=== PATIENT | male | born 1965 | race Hispanic/Latino ===

== ENCOUNTER 2022-01-12 19:05 | Emergency (ER) | payer OTHER ==
[~2022-01-12] VITALS: Ht 182.9 cm; Wt 129.3 kg
[~2022-01-12 19:05] MED LIST: PHENOBARBITOL
[2022-01-12 19:43] LABS: BASOPHILS % 0.8 % (0.0-1.0); EOSINOPHILS # (AUTO) 0.6 (0.0-0.4); EOSINOPHILS % 15.2 % (0.0-6.0); HEMATOCRIT 25.4 % (38.2-49.6); HEMOGLOBIN 7.8 g/dL (14.0-18.0); LYMPHOCYTES # (AUTO) 0.3 (1.0-3.2); LYMPHOCYTES % 7.9 % (18.0-39.1); MEAN CORPUSCULAR HEMOGLOBIN 28.7 pg (28-32); MEAN CORPUSCULAR HGB CONC 30.7 g/dL (31-35); MEAN CORPUSCULAR VOLUME 93.4 fL (81-99); MONOCYTES # (AUTO) 0.4 (0.2-0.8); MONOCYTES % 9.7 % (4.4-11.3); NEUTROPHILS # (AUTO) 2.5 (2.1-6.9); NEUTROPHILS % 66.1 % (38.7-80.0); PLATELET COUNT 57 x10e3/uL (140-360); RED BLOOD COUNT 2.72 x10e6/uL (4.3-5.7); RED CELL DISTRIBUTION WIDTH 14.2 % (11.7-14.4)
[2022-01-12 19:48] LABS: INR 1.16; PROTHROMBIN TIME 15.8 seconds (11.9-14.5)
[2022-01-12 19:49] LABS: PARTIAL THROMBOPLASTIN TIME 43.4 seconds (23.8-35.5)
[2022-01-12 19:58] LABS: ALBUMIN 2.3 g/dL (3.5-5.0); ALBUMIN/GLOBULIN RATIO 0.6 (0.8-2.0); ANION GAP 9.3 mmol/L (8-16); CALCIUM 7.5 mg/dL (8.4-10.2); CREATININE, SERUM 0.83 mg/dL (0.72-1.25); POTASSIUM 4.3 mmol/L (3.5-5.1)
[2022-01-12 20:22] LABS: CLARITY,URINE SL CLOUDY (CLEAR); COLOR,URINE STRAW (YELLOW); KETONES,URINE NEGATIVE (NEGATIVE); LEUKOCYTE ESTERASE ,URINE SMALL (NEGATIVE); NITRITE,URINE NEGATIVE (NEGATIVE); PROTEIN,URINE DIPSTICK NEGATIVE (NEGATIVE); URINE UROBILINOGEN 0.2 mg/dL (0.2 - 1)
[2022-01-12 20:33] LABS: BACTERIA,URINE MODERATE /HPF; EPITHELIAL CELLS,URINE RARE /LPF; RBC,URINE 0-5 /HPF (0-5)
== END 2022-01-12 20:43 | disposition home or self-care (01) ==
LOC: ER 19:30
DX: R18.8 Other ascites (principal); K74.60 Unspecified cirrhosis of liver; R74.8 Abnormal levels of other serum enzymes
CPT/HCPCS: 36415; 80053; 81001; 83690; 85025; 85610; 85730; 99283

== ENCOUNTER → 2022-02-01 | Day surgery (SDC) | payer OTHER ==
[2022-01-31 12:37] LABS: BASOPHILS % 0.7 % (0.0-1.0); EOSINOPHILS # (AUTO) 0.4 (0.0-0.4); EOSINOPHILS % 8.1 % (0.0-6.0); HEMATOCRIT 28.4 % (38.2-49.6); HEMOGLOBIN 8.7 g/dL (14.0-18.0); LYMPHOCYTES # (AUTO) 0.5 (1.0-3.2); LYMPHOCYTES % 11.2 % (18.0-39.1); MEAN CORPUSCULAR HEMOGLOBIN 28.9 pg (28-32); MEAN CORPUSCULAR HGB CONC 30.6 g/dL (31-35); MEAN CORPUSCULAR VOLUME 94.4 fL (81-99); MONOCYTES # (AUTO) 0.5 (0.2-0.8); MONOCYTES % 10.9 % (4.4-11.3); NEUTROPHILS # (AUTO) 2.9 (2.1-6.9); NEUTROPHILS % 68.4 % (38.7-80.0); PLATELET COUNT 76 x10e3/uL (140-360); RED BLOOD COUNT 3.01 x10e6/uL (4.3-5.7); RED CELL DISTRIBUTION WIDTH 14.1 % (11.7-14.4)
[2022-01-31 12:54] LABS: INR 1.2; PROTHROMBIN TIME 16.3 seconds (11.9-14.5)
[2022-01-31 12:55] LABS: PARTIAL THROMBOPLASTIN TIME 41.7 seconds (23.8-35.5)
[2022-01-31 13:03] LABS: ALBUMIN 2.3 g/dL (3.5-5.0); ALBUMIN/GLOBULIN RATIO 0.6 (0.8-2.0); CALCIUM 7.6 mg/dL (8.4-10.2); CREATININE, SERUM 0.89 mg/dL (0.72-1.25)
[~2022-02-01] MED LIST changes: +CEFTRIAXONE 1 GM VIAL ONE; +FENTANYL CITRATE/PF 100MCG/2 ML INJ ONE; +KETAMINE HCL INJ 50 MG/ML 10 ML VIAL ONE; +LASIX40 MG PO; +PROPOFOL IV EMULSION 50 ML IV ONE
[2022-02-01 14:10] VITALS: BP 130/80
== END | disposition home or self-care (01) ==
LOC: OR 09:51
PROVIDERS: ATTEND Internal Medicine Gastroenterology
DX: K74.60 Unspecified cirrhosis of liver (principal); I85.10 Secondary esophageal varices without bleeding; K62.1 Rectal polyp; K64.8 Other hemorrhoids; K59.00 Constipation, unspecified; K29.50 Unspecified chronic gastritis without bleeding; K25.9 Gastric ulcer, unspecified as acute or chronic, without hemorrhage or perforation; K76.6 Portal hypertension; K31.89 Other diseases of stomach and duodenum; Z71.3 Dietary counseling and surveillance; D64.89 Other specified anemias; I10 Essential (primary) hypertension; Z01.810 Encounter for preprocedural cardiovascular examination; Z01.812 Encounter for preprocedural laboratory examination; Z79.899 Other long term (current) drug therapy; Z68.31 Body mass index [BMI] 31.0-31.9, adult
CPT/HCPCS: 36415; 43239; 43244; 45384; 80053; 85025; 85610; 85730; 93005; C9113; J0696; J2704; J3010; 43270; 45378; 45385

== ENCOUNTER 2022-02-03 11:37 | Emergency (ER) | payer OTHER ==
[~2022-02-03] VITALS: Ht 182.9 cm; Wt 129.3 kg
[~2022-02-03 11:37] MED LIST changes: -CEFTRIAXONE 1 GM VIAL ONE; -FENTANYL CITRATE/PF 100MCG/2 ML INJ ONE; -KETAMINE HCL INJ 50 MG/ML 10 ML VIAL ONE; -PROPOFOL IV EMULSION 50 ML IV ONE
[2022-02-03 12:37] LABS: BASOPHILS % 0.6 % (0.0-1.0); EOSINOPHILS # (AUTO) 0.2 (0.0-0.4); EOSINOPHILS % 4.2 % (0.0-6.0); LYMPHOCYTES # (AUTO) 0.4 (1.0-3.2); LYMPHOCYTES % 8.2 % (18.0-39.1); MEAN CORPUSCULAR HEMOGLOBIN 28.7 pg (28-32); MEAN CORPUSCULAR HGB CONC 31.8 g/dL (31-35); MEAN CORPUSCULAR VOLUME 90.3 fL (81-99); MONOCYTES # (AUTO) 0.5 (0.2-0.8); MONOCYTES % 11.3 % (4.4-11.3); NEUTROPHILS # (AUTO) 3.6 (2.1-6.9); NEUTROPHILS % 75.3 % (38.7-80.0); PLATELET COUNT 56 x10e3/uL (140-360); RED BLOOD COUNT 2.89 x10e6/uL (4.3-5.7); RED CELL DISTRIBUTION WIDTH 14.4 % (11.7-14.4)
[2022-02-03 12:39] LABS: HEMATOCRIT 26.2 % (38.2-49.6); HEMOGLOBIN 8.4 g/dL (14.0-18.0)
[2022-02-03 12:50] LABS: INR 1.14; PROTHROMBIN TIME 15.6 seconds (11.9-14.5)
[2022-02-03 12:51] LABS: PARTIAL THROMBOPLASTIN TIME 46.2 seconds (23.8-35.5)
[2022-02-03 12:58] LABS: ALBUMIN 2.4 g/dL (3.5-5.0); ALBUMIN/GLOBULIN RATIO 0.6 (0.8-2.0); ANION GAP 12.2 mmol/L (8-16); CALCIUM 7.6 mg/dL (8.4-10.2); CREATININE, SERUM 0.95 mg/dL (0.72-1.25); POTASSIUM 4.2 mmol/L (3.5-5.1)
[2022-02-03] MEDS ORDERED: ALBUMIN 25% 12.5GM 50ML 300 ML IV ONE (13:41)
[2022-02-03 17:13] VITALS: BP 142/85
== END 2022-02-03 15:57 | disposition home or self-care (01) ==
LOC: ER 11:47
DX: R18.8 Other ascites (principal); K74.60 Unspecified cirrhosis of liver; G40.909 Epilepsy, unspecified, not intractable, without status epilepticus
CPT/HCPCS: 36415; 49083; 74470; 80053; 85025; 85610; 85730; 99284; C1729

== ENCOUNTER → 2022-02-14 | Outpatient (CLI) | payer OTHER ==
[~2022-02-14] MED LIST changes: +ALBUMIN 25% 12.5GM 50ML 300 ML IV ONE
== END ==
LOC: US 12:44
PROVIDERS: ATTEND Internal Medicine Gastroenterology
DX: R18.8 Other ascites (principal); K74.69 Other cirrhosis of liver
CPT/HCPCS: 49083; C1729

== ENCOUNTER → 2022-02-24 | Outpatient (CLI) | payer OTHER | LOC: US 10:43 | PROVIDERS: ATTEND Internal Medicine Gastroenterology | DX: K74.69 Other cirrhosis of liver (principal) | CPT/HCPCS: 49083; C1729 ==

== ENCOUNTER → 2022-03-07 | Outpatient (CLI) | payer OTHER ==
[2022-03-07 11:52] LABS: HEMOGLOBIN 8.3 g/dL (14.0-18.0)
[2022-03-07 12:03] LABS: INR 1.19; PROTHROMBIN TIME 16.2 seconds (11.9-14.5)
[2022-03-07 12:04] LABS: PARTIAL THROMBOPLASTIN TIME 45.3 seconds (23.8-35.5)
== END ==
LOC: US 11:21
PROVIDERS: ATTEND Internal Medicine Gastroenterology
DX: K74.69 Other cirrhosis of liver (principal)
CPT/HCPCS: 36415; 49083; 85014; 85049; 85610; 85730

== ENCOUNTER → 2022-03-15 | Outpatient (CLI) | payer OTHER | LOC: US 11:33 | PROVIDERS: ATTEND Internal Medicine Gastroenterology | DX: K74.69 Other cirrhosis of liver (principal) | CPT/HCPCS: 49083 ==

== ENCOUNTER → 2022-05-01 | Outpatient (CLI) | payer OTHER | LOC: US 09:32 | PROVIDERS: ATTEND Internal Medicine Gastroenterology | DX: K74.69 Other cirrhosis of liver (principal) | CPT/HCPCS: 49083; C1729 ==

== ENCOUNTER → 2022-05-08 | Outpatient (CLI) | payer OTHER | LOC: US 09:02 | PROVIDERS: ATTEND Internal Medicine Gastroenterology | DX: K74.69 Other cirrhosis of liver (principal) | CPT/HCPCS: 49083 ==

== ENCOUNTER → 2022-05-15 | Outpatient (CLI) | payer OTHER ==
[~2022-05-15] MED LIST changes: +CEPHALEXIN500 MG PO
[2022-05-15 12:13] LABS: BASOPHILS % 0.7 % (0.0-1.0); EOSINOPHILS # (AUTO) 0.3 (0.0-0.4); EOSINOPHILS % 6.3 % (0.0-6.0); HEMATOCRIT 27.1 % (38.2-49.6); HEMOGLOBIN 8.3 g/dL (14.0-18.0); LYMPHOCYTES # (AUTO) 0.4 (1.0-3.2); LYMPHOCYTES % 8.9 % (18.0-39.1); MEAN CORPUSCULAR HEMOGLOBIN 28.7 pg (28-32); MEAN CORPUSCULAR HGB CONC 30.6 g/dL (31-35); MEAN CORPUSCULAR VOLUME 93.8 fL (81-99); MONOCYTES # (AUTO) 0.6 (0.2-0.8); MONOCYTES % 12.1 % (4.4-11.3); NEUTROPHILS # (AUTO) 3.3 (2.1-6.9); NEUTROPHILS % 71.6 % (38.7-80.0); PLATELET COUNT 63 x10e3/uL (140-360); RED BLOOD COUNT 2.89 x10e6/uL (4.3-5.7); RED CELL DISTRIBUTION WIDTH 14.1 % (11.7-14.4)
[2022-05-15 12:41] LABS: INR 1.28; PROTHROMBIN TIME 16.2 seconds (11.9-14.5)
[2022-05-15 12:42] LABS: PARTIAL THROMBOPLASTIN TIME 46.3 seconds (23.8-35.5)
[2022-05-15 12:49] LABS: ALBUMIN 2.7 g/dL (3.5-5.0); ALBUMIN/GLOBULIN RATIO 0.8 (0.8-2.0); CALCIUM 8.1 mg/dL (8.4-10.2); CREATININE, SERUM 1.06 mg/dL (0.72-1.25)
== END ==
LOC: US 11:16
PROVIDERS: ATTEND Internal Medicine Gastroenterology
DX: K74.69 Other cirrhosis of liver (principal)
CPT/HCPCS: 36415; 49083; 80053; 85025; 85610; 85730

== ENCOUNTER 2022-05-18 03:55 | Emergency (ER) | payer OTHER ==
[~2022-05-18] VITALS: Ht 182.9 cm; Wt 129.3 kg
[~2022-05-18 03:55] MED LIST changes: -ALBUMIN 25% 12.5GM 50ML 300 ML IV ONE; -CEPHALEXIN500 MG PO
[2022-05-18] MEDS ORDERED: CEPHALEXIN500 MG PO (04:29)
== END 2022-05-18 04:55 | disposition home or self-care (01) ==
LOC: ER 03:58
DX: S01.111A Laceration without foreign body of right eyelid and periocular area, initial encounter (principal); S91.204A Unspecified open wound of right lesser toe(s) with damage to nail, initial encounter; W01.198A Fall on same level from slipping, tripping and stumbling with subsequent striking against other object, initial encounter; Y93.01 Activity, walking, marching and hiking; Y92.89 Other specified places as the place of occurrence of the external cause; K76.9 Liver disease, unspecified
CPT/HCPCS: 99283

== ENCOUNTER → 2022-05-22 | Outpatient (CLI) | payer OTHER ==
[~2022-05-22] MED LIST changes: +ALBUMIN 25% 12.5GM 50ML 300 ML IV ONE; +CEPHALEXIN500 MG PO
== END ==
LOC: US 11:14
PROVIDERS: ATTEND Internal Medicine Gastroenterology
DX: K74.69 Other cirrhosis of liver (principal)
CPT/HCPCS: 49083; C1729

== ENCOUNTER 2022-05-29 12:18 | Emergency (ER) | payer OTHER ==
[~2022-05-29] VITALS: Ht 182.9 cm; Wt 129.3 kg
[~2022-05-29 12:18] MED LIST changes: -ALBUMIN 25% 12.5GM 50ML 300 ML IV ONE
== END 2022-05-29 13:54 | disposition home or self-care (01) ==
LOC: ER 12:25
DX: Z48.02 Encounter for removal of sutures (principal)
CPT/HCPCS: 99282

== ENCOUNTER → 2022-05-30 | Outpatient (CLI) | payer OTHER ==
[~2022-05-30] MED LIST changes: +ALBUMIN 25% 12.5GM 50ML 300 ML IV ONE
== END ==
LOC: US 12:21
PROVIDERS: ATTEND Nurse Practitioner
DX: K74.69 Other cirrhosis of liver (principal)
CPT/HCPCS: 49083; C1729

== ENCOUNTER → 2022-06-14 | Outpatient (CLI) | payer OTHER ==
[2022-06-14 10:35] LABS: HEMOGLOBIN 7.5 g/dL (14.0-18.0)
[2022-06-14 10:41] LABS: INR 1.36; PROTHROMBIN TIME 16.9 seconds (11.9-14.5)
[2022-06-14 10:42] LABS: PARTIAL THROMBOPLASTIN TIME 48.3 seconds (23.8-35.5)
[2022-06-14 10:46] LABS: ANION GAP 11.4 mmol/L (8-16); CALCIUM 7.6 mg/dL (8.4-10.2); CREATININE, SERUM 1.18 mg/dL (0.72-1.25); POTASSIUM 4.4 mmol/L (3.5-5.1)
== END ==
LOC: US 09:57
PROVIDERS: ATTEND Nurse Practitioner
DX: K74.69 Other cirrhosis of liver (principal)
CPT/HCPCS: 36415; 49083; 80048; 85014; 85049; 85610; 85730

== ENCOUNTER → 2022-06-21 | Outpatient (CLI) | payer OTHER ==
[2022-06-21 09:34] LABS: HEMOGLOBIN 7.4 g/dL (14.0-18.0)
[2022-06-21 09:53] LABS: INR 1.27; PROTHROMBIN TIME 16.1 seconds (11.9-14.5)
[2022-06-21 09:54] LABS: PARTIAL THROMBOPLASTIN TIME 50.6 seconds (23.8-35.5)
[2022-06-21 09:58] LABS: CREATININE, SERUM 1.51 mg/dL (0.72-1.25)
== END ==
LOC: US 09:08
PROVIDERS: ATTEND Nurse Practitioner
DX: K74.69 Other cirrhosis of liver (principal)
CPT/HCPCS: 36415; 49083; 82565; 84520; 85014; 85049; 85610; 85730; C1729

== ENCOUNTER → 2022-06-28 | Outpatient (CLI) | payer OTHER | LOC: RAD 09:43 | PROVIDERS: ATTEND Nurse Practitioner | DX: K74.69 Other cirrhosis of liver (principal) | CPT/HCPCS: 49083 ==

== ENCOUNTER → 2022-07-05 | Outpatient (CLI) | payer OTHER | LOC: US 10:51 | PROVIDERS: ATTEND Internal Medicine Gastroenterology | DX: K74.69 Other cirrhosis of liver (principal) | CPT/HCPCS: 49083; C1729 ==

== ENCOUNTER → 2022-07-11 | Outpatient (CLI) | payer OTHER ==
[~2022-07-11] MED LIST changes: +ALBUMIN 25% 12.5GM 50ML 200 ML IV ONE; -ALBUMIN 25% 12.5GM 50ML 300 ML IV ONE
== END ==
LOC: US 10:02
PROVIDERS: ATTEND Nurse Practitioner
DX: K74.69 Other cirrhosis of liver (principal)
CPT/HCPCS: 49083; C1729

== ENCOUNTER → 2022-07-19 | Outpatient (CLI) | payer OTHER ==
[~2022-07-19] MED LIST changes: -ALBUMIN 25% 12.5GM 50ML 200 ML IV ONE; +ALBUMIN 25% 12.5GM 50ML 300 ML IV ONE
== END ==
LOC: US 10:32
PROVIDERS: ATTEND Nurse Practitioner
DX: K74.69 Other cirrhosis of liver (principal)
CPT/HCPCS: 49083; C1729

== ENCOUNTER → 2022-07-25 | Outpatient (CLI) | payer OTHER ==
[2022-07-25 08:28] LABS: HEMOGLOBIN 8.4 g/dL (14.0-18.0)
[2022-07-25 08:44] LABS: INR 1.28; PROTHROMBIN TIME 16.5 seconds (11.9-14.5)
[2022-07-25 08:45] LABS: PARTIAL THROMBOPLASTIN TIME 50.4 seconds (23.8-35.5)
== END ==
LOC: US 07:38
PROVIDERS: ATTEND Internal Medicine Gastroenterology
DX: K74.69 Other cirrhosis of liver (principal)
CPT/HCPCS: 36415; 49083; 85014; 85049; 85610; 85730; C1729

== ENCOUNTER → 2022-08-01 | Outpatient (CLI) | payer OTHER | LOC: US 08:03 | PROVIDERS: ATTEND Internal Medicine Gastroenterology | DX: K74.69 Other cirrhosis of liver (principal) | CPT/HCPCS: 49083 ==

== ENCOUNTER → 2022-08-08 | Outpatient (CLI) | payer OTHER | LOC: US 10:32 | PROVIDERS: ATTEND Internal Medicine Gastroenterology | DX: K74.69 Other cirrhosis of liver (principal) | CPT/HCPCS: 49083 ==

== ENCOUNTER → 2022-08-16 | Outpatient (CLI) | payer OTHER | LOC: US 09:20 | PROVIDERS: ATTEND Internal Medicine Gastroenterology | DX: K74.69 Other cirrhosis of liver (principal) | CPT/HCPCS: 49083; C1729 ==

== ENCOUNTER → 2022-08-23 | Outpatient (CLI) | payer OTHER | LOC: US 10:18 | PROVIDERS: ATTEND Nurse Practitioner | DX: K74.69 Other cirrhosis of liver (principal) | CPT/HCPCS: 49083; C1729 ==

== ENCOUNTER → 2022-08-30 | Outpatient (CLI) | payer OTHER ==
[2022-08-30 11:24] LABS: INR 1.26; PROTHROMBIN TIME 16.3 seconds (11.9-14.5)
[2022-08-30 11:25] LABS: PARTIAL THROMBOPLASTIN TIME 54.5 seconds (23.8-35.5)
== END ==
LOC: US 10:46
PROVIDERS: ATTEND Internal Medicine Gastroenterology
DX: K74.69 Other cirrhosis of liver (principal)
CPT/HCPCS: 36415; 49083; 85014; 85049; 85610; 85730

== ENCOUNTER → 2022-09-06 | Outpatient (CLI) | payer OTHER | LOC: US 10:26 | PROVIDERS: ATTEND Nurse Practitioner | DX: K74.69 Other cirrhosis of liver (principal) | CPT/HCPCS: 49083 ==

== ENCOUNTER → 2022-09-13 | Outpatient (CLI) | payer OTHER ==
[2022-09-13 10:09] LABS: INR 1.31; PROTHROMBIN TIME 16.8 seconds (11.9-14.5)
[2022-09-13 10:10] LABS: BASOPHILS # (AUTO) 0.1 (0.0-0.1); BASOPHILS % 0.9 % (0.0-1.0); EOSINOPHILS # (AUTO) 1.5 (0.0-0.4); EOSINOPHILS % 27.3 % (0.0-6.0); HEMATOCRIT 25.4 % (38.2-49.6); HEMOGLOBIN 8.1 g/dL (14.0-18.0); LYMPHOCYTES # (AUTO) 0.4 (1.0-3.2); LYMPHOCYTES % 6.3 % (18.0-39.1); MEAN CORPUSCULAR HEMOGLOBIN 28.6 pg (28-32); MEAN CORPUSCULAR HGB CONC 31.9 g/dL (31-35); MEAN CORPUSCULAR VOLUME 89.8 fL (81-99); MONOCYTES # (AUTO) 0.6 (0.2-0.8); MONOCYTES % 10.5 % (4.4-11.3); NEUTROPHILS % 54.6 % (38.7-80.0); PLATELET COUNT 88 x10e3/uL (140-360); RED BLOOD COUNT 2.83 x10e6/uL (4.3-5.7); RED CELL DISTRIBUTION WIDTH 14.3 % (11.7-14.4)
[2022-09-13 12:30] LABS: EOSINOPHILS % (MANUAL) 13 % (0-7); LYMPHOCYTES % (MANUAL) 8 % (19-48); MONOCYTES % (MANUAL) 4 % (3.4-9.0); MYELOCYTES % (MANUAL) 1 % (0-0); NEUTROPHILS % (MANUAL) 74 % (40-74); PLATELET ESTIMATE SLIGHTLY DECREASED
[2022-09-13 12:31] LABS: PLATELET MORPHOLOGY COMMENT NORMAL; RBC MORPHOLOGY COMMENT NORMAL
== END ==
LOC: US 09:08
PROVIDERS: ATTEND Nurse Practitioner
DX: K74.69 Other cirrhosis of liver (principal)
CPT/HCPCS: 36415; 49083; 85025; 85610; 85730

== ENCOUNTER → 2022-09-22 | Outpatient (CLI) | payer OTHER | LOC: US 11:56 | PROVIDERS: ATTEND Internal Medicine Gastroenterology | DX: K74.69 Other cirrhosis of liver (principal) | CPT/HCPCS: 49083; C1729 ==

== ENCOUNTER → 2022-09-28 | Outpatient (CLI) | payer OTHER ==
[~2022-09-28] MED LIST changes: +ALBUMIN 25% 12.5GM 50ML 200 ML IV ONE; -ALBUMIN 25% 12.5GM 50ML 300 ML IV ONE; +LIDOCAINE HCL 1% LOCAL INJ 20 ML VIAL ONE
== END ==
LOC: US 11:05
PROVIDERS: ATTEND Internal Medicine Gastroenterology
DX: K74.69 Other cirrhosis of liver (principal)
CPT/HCPCS: 49083; J2001

== ENCOUNTER → 2022-10-20 | Outpatient (CLI) | payer OTHER ==
[~2022-10-20] MED LIST changes: +ALBUMIN 25% 12.5GM 50ML 150 ML IV ONE; -ALBUMIN 25% 12.5GM 50ML 200 ML IV ONE; -LIDOCAINE HCL 1% LOCAL INJ 20 ML VIAL ONE
[2022-10-20 11:08] LABS: HEMOGLOBIN 7.9 g/dL (14.0-18.0)
[2022-10-20 11:23] LABS: INR 1.33; PROTHROMBIN TIME 17.3 seconds (11.9-14.5)
[2022-10-20 11:24] LABS: PARTIAL THROMBOPLASTIN TIME 46.4 seconds (23.8-35.5)
== END ==
LOC: US 10:46
PROVIDERS: ATTEND Nurse Practitioner
DX: K74.69 Other cirrhosis of liver (principal)
CPT/HCPCS: 36415; 49083; 85014; 85049; 85610; 85730

== ENCOUNTER → 2022-11-03 | Outpatient (CLI) | payer OTHER ==
[~2022-11-03] MED LIST changes: -ALBUMIN 25% 12.5GM 50ML 150 ML IV ONE; +ALBUMIN 25% 12.5GM 50ML 300 ML IV ONE
== END ==
LOC: US 10:59
PROVIDERS: ATTEND Nurse Practitioner
DX: K74.69 Other cirrhosis of liver (principal)
CPT/HCPCS: 49083; C1729

== ENCOUNTER → 2023-02-06 | Outpatient (REF) | payer OTHER ==
[~2023-02-06] MED LIST changes: +PANTOPRAZOLE SO40 MG PO; +PROPRANOLOL HCL10 MG PO; +SPIRONOLACTONE25 MG PO
== END ==
LOC: US 11:02
PROVIDERS: ATTEND Internal Medicine Gastroenterology
DX: R18.8 Other ascites (principal); K74.69 Other cirrhosis of liver
CPT/HCPCS: 49083

== ENCOUNTER → 2023-02-13 | Outpatient (REF) | payer OTHER ==
[2023-02-13 14:04] LABS: INR 1.37; PROTHROMBIN TIME 17.2 seconds (11.9-14.5)
[2023-02-13 14:05] LABS: PARTIAL THROMBOPLASTIN TIME 55.1 seconds (23.8-35.5)
[2023-02-13 14:08] LABS: BASOPHILS # (AUTO) 0.1 (0.0-0.1); BASOPHILS % 1.1 % (0.0-1.0); EOSINOPHILS # (AUTO) 0.5 (0.0-0.4); HEMATOCRIT 22.7 % (38.2-49.6); HEMOGLOBIN 7.2 g/dL (14.0-18.0); LYMPHOCYTES # (AUTO) 0.4 (1.0-3.2); LYMPHOCYTES % 9.4 % (18.0-39.1); MEAN CORPUSCULAR HEMOGLOBIN 28.8 pg (28-32); MEAN CORPUSCULAR HGB CONC 31.7 g/dL (31-35); MEAN CORPUSCULAR VOLUME 90.8 fL (81-99); MONOCYTES # (AUTO) 0.7 (0.2-0.8); MONOCYTES % 14.5 % (4.4-11.3); NEUTROPHILS # (AUTO) 2.9 (2.1-6.9); NEUTROPHILS % 64.3 % (38.7-80.0); PLATELET COUNT 88 x10e3/uL (140-360); RED CELL DISTRIBUTION WIDTH 14.7 % (11.7-14.4); WHITE BLOOD COUNT 4.48 x10e3/uL (4.8-10.8)
== END ==
LOC: US 12:27
PROVIDERS: ATTEND Internal Medicine Gastroenterology
DX: K74.69 Other cirrhosis of liver (principal)
CPT/HCPCS: 36415; 49083; 85025; 85610; 85730

== ENCOUNTER → 2023-02-20 | Outpatient (REF) | payer OTHER ==
[~2023-02-20] MED LIST changes: +ALBUMIN 25% 12.5GM 50ML 100 ML IV ONE; -ALBUMIN 25% 12.5GM 50ML 300 ML IV ONE
== END ==
LOC: US 10:00
PROVIDERS: ATTEND Internal Medicine Gastroenterology
DX: R18.8 Other ascites (principal); K74.69 Other cirrhosis of liver
CPT/HCPCS: 49083

== ENCOUNTER → 2023-03-14 | Outpatient (REF) | payer OTHER ==
[~2023-03-14] MED LIST changes: -ALBUMIN 25% 12.5GM 50ML 100 ML IV ONE; +ALBUMIN 25% 12.5GM 50ML 300 ML IV ONE
== END ==
LOC: US 10:13
PROVIDERS: ATTEND Internal Medicine Gastroenterology
DX: R18.8 Other ascites (principal); K74.69 Other cirrhosis of liver
CPT/HCPCS: 49083

== ENCOUNTER → 2023-03-28 | Outpatient (REF) | payer OTHER ==
[~2023-03-28] MED LIST changes: -ALBUMIN 25% 12.5GM 50ML 300 ML IV ONE
[2023-03-28 09:26] LABS: BASOPHILS % 0.3 % (0.0-1.0); EOSINOPHILS # (AUTO) 0.2 (0.0-0.4); EOSINOPHILS % 2.3 % (0.0-6.0); LYMPHOCYTES # (AUTO) 0.4 (1.0-3.2); LYMPHOCYTES % 4.1 % (18.0-39.1); MEAN CORPUSCULAR HEMOGLOBIN 28.1 pg (28-32); MEAN CORPUSCULAR HGB CONC 30.8 g/dL (31-35); MEAN CORPUSCULAR VOLUME 91.5 fL (81-99); MONOCYTES # (AUTO) 0.6 (0.2-0.8); MONOCYTES % 5.9 % (4.4-11.3); NEUTROPHILS # (AUTO) 8.5 (2.1-6.9); NEUTROPHILS % 85.5 % (38.7-80.0); PLATELET COUNT 61 x10e3/uL (140-360); RED BLOOD COUNT 1.99 x10e6/uL (4.3-5.7); RED CELL DISTRIBUTION WIDTH 17.6 % (11.7-14.4); WHITE BLOOD COUNT 9.96 x10e3/uL (4.8-10.8)
[2023-03-28 09:37] LABS: HEMATOCRIT 18.2 % (38.2-49.6); HEMOGLOBIN 5.6 g/dL (14.0-18.0)
[2023-03-28 09:47] LABS: INR 1.51; PROTHROMBIN TIME 18.5 seconds (11.9-14.5)
[2023-03-28 09:48] LABS: PARTIAL THROMBOPLASTIN TIME 51.8 seconds (23.8-35.5)
[2023-03-28 09:53] LABS: ALBUMIN 1.8 g/dL (3.5-5.0); ALBUMIN/GLOBULIN RATIO 0.4 (0.8-2.0); ANION GAP 10.7 mmol/L (8-16); CALCIUM 7.5 mg/dL (8.4-10.2); CREATININE, SERUM 1.32 mg/dL (0.72-1.25); POTASSIUM 3.7 mmol/L (3.5-5.1); TOTAL PROTEIN 6.2 g/dL (6.5-8.1)
== END ==
LOC: US 08:56
PROVIDERS: ATTEND Internal Medicine Gastroenterology
DX: K74.69 Other cirrhosis of liver (principal)
CPT/HCPCS: 36415; 80053; 82140; 85025; 85610; 85730

== ENCOUNTER 2023-04-06 14:11 | Inpatient (IN) | payer OTHER ==
[~2023-04-06] VITALS: Ht 182.9 cm; Wt 129.3 kg
[2023-04-06 14:58] LABS: BASOPHILS % 0.4 % (0.0-1.0); EOSINOPHILS # (AUTO) 0.2 (0.0-0.4); LYMPHOCYTES # (AUTO) 0.3 (1.0-3.2); LYMPHOCYTES % 4.4 % (18.0-39.1); MEAN CORPUSCULAR HGB CONC 29.9 g/dL (31-35); MEAN CORPUSCULAR VOLUME 96.7 fL (81-99); MONOCYTES # (AUTO) 0.7 (0.2-0.8); NEUTROPHILS # (AUTO) 6.3 (2.1-6.9); NEUTROPHILS % 83.7 % (38.7-80.0); RED BLOOD COUNT 1.83 x10e6/uL (4.3-5.7); WHITE BLOOD COUNT 7.57 x10e3/uL (4.8-10.8)
[2023-04-06 14:59] LABS: HEMATOCRIT 17.7 % (38.2-49.6); HEMOGLOBIN 5.3 g/dL (14.0-18.0); PLATELET COUNT 99 x10e3/uL (140-360)
[2023-04-06 15:14] LABS: ALBUMIN 1.6 g/dL (3.5-5.0); ALBUMIN/GLOBULIN RATIO 0.3 (0.8-2.0); ANION GAP 10.4 mmol/L (8-16); BILIRUBIN,TOTAL 1.9 mg/dL (0.2-1.2); CREATININE, SERUM 1.06 mg/dL (0.72-1.25); TOTAL PROTEIN 6.2 g/dL (6.5-8.1)
[2023-04-06 15:15] LABS: POTASSIUM 3.4 mmol/L (3.5-5.1)
[2023-04-06] MEDS ORDERED: SODIUM CHLORIDE 0.9% 250ML 250 ML IV ONE (15:15)
[2023-04-06] MEDS ORDERED: SODIUM CHLORIDE FLUSH 10 ML SYR INJ PRN (18:15)
[2023-04-06] MEDS ORDERED: ONDANSETRON HCL INJ 2MG/ML 2ML 2 MG/ML VIAL IV PRN (18:15)
[2023-04-06] MEDS ORDERED: DOCUSATE SODIUM 100 MG CAP PO PRN (19:30)
[2023-04-06] MEDS ORDERED: MELATONIN 3 MG TAB PO PRN (19:30)
[2023-04-06] MEDS ORDERED: SIMETHICONE 80 MG CHEW PO PRN (19:30)
[2023-04-06] MEDS ORDERED: METOPROLOL TARTRATE INJ 1 MG/ML VIAL IV PRN (19:30)
[2023-04-06 20:35] VITALS: BP 140/60; PULSE 83; RESP 19; TEMP 98.3; O2SAT 100
[2023-04-06 20:47] LABS: FERRITIN 340.01 ng/mL (21.81-274.66)
[2023-04-06] MEDS: FUROSEMIDE INJ 10 MG/ML 4 ML VIAL IV SCH (21:00)
[2023-04-06 23:00] VITALS: BP 140/60; PULSE 83; RESP 19; TEMP 98.3; O2SAT 100
[2023-04-07] VITALS (10 sets, daily range): BP systolic 115–130; BP diastolic 57–60; PULSE 57–86; RESP 16–20; TEMP 98.4–99; O2SAT 95–100
[2023-04-07 00:12] LABS: INR 1.63; PROTHROMBIN TIME 19.7 seconds (11.9-14.5)
[2023-04-07] MEDS ORDERED: PHYTONADIONE 10 MG/ML AMP IV ONE (01:00)
[2023-04-07] MEDS ORDERED: SODIUM CHLORIDE 0.9% 250ML 250 ML ONE ×2 (01:16→07:41)
[2023-04-07] MEDS ORDERED: SODIUM CHLORIDE 0.9% 500ML 500 ML ONE (01:17)
[2023-04-07] MEDS ORDERED: FUROSEMIDE INJ 10 MG/ML 4 ML VIAL IV STA (01:27)
[2023-04-07] MEDS: SODIUM BICARBONATE 650 MG TAB PO SCH ×4 (01:36→21:06)
[2023-04-07 05:38] LABS: BASOPHILS % 0.3 % (0.0-1.0); EOSINOPHILS # (AUTO) 0.2 (0.0-0.4); EOSINOPHILS % 3.7 % (0.0-6.0); LYMPHOCYTES # (AUTO) 0.3 (1.0-3.2); LYMPHOCYTES % 4.5 % (18.0-39.1); MEAN CORPUSCULAR HEMOGLOBIN 29.7 pg (28-32); MEAN CORPUSCULAR HGB CONC 31.2 g/dL (31-35); MEAN CORPUSCULAR VOLUME 95.1 fL (81-99); MONOCYTES # (AUTO) 0.5 (0.2-0.8); MONOCYTES % 7.8 % (4.4-11.3); NEUTROPHILS # (AUTO) 5.3 (2.1-6.9); NEUTROPHILS % 83.2 % (38.7-80.0); PLATELET COUNT 81 x10e3/uL (140-360); RED BLOOD COUNT 1.82 x10e6/uL (4.3-5.7); RED CELL DISTRIBUTION WIDTH 16.6 % (11.7-14.4); WHITE BLOOD COUNT 6.41 x10e3/uL (4.8-10.8)
[2023-04-07 06:04] LABS: ALBUMIN 1.4 g/dL (3.5-5.0); ALBUMIN/GLOBULIN RATIO 0.3 (0.8-2.0); ANION GAP 9.4 mmol/L (8-16); BILIRUBIN,TOTAL 2.1 mg/dL (0.2-1.2); CREATININE, SERUM 0.95 mg/dL (0.72-1.25); TOTAL PROTEIN 5.9 g/dL (6.5-8.1)
[2023-04-07 06:07] LABS: POTASSIUM 3.4 mmol/L (3.5-5.1)
[2023-04-07 06:09] LABS: CALCIUM 6.7 mg/dL (8.4-10.2)
[2023-04-07 06:21] LABS: HEMOGLOBIN 5.4 g/dL (14.0-18.0)
[2023-04-07 06:22] LABS: HEMATOCRIT 17.3 % (38.2-49.6)
[2023-04-07] MEDS: FUROSEMIDE INJ 10 MG/ML 4 ML VIAL IV SCH ×2 (08:48→21:07)
[2023-04-07] MEDS: PROPRANOLOL HCL 10 MG TAB PO SCH ×2 (08:49→17:23)
[2023-04-07] MEDS: SPIRONOLACTONE 25 MG TAB PO SCH (08:49)
[2023-04-07] MEDS ORDERED: PANTOPRAZOLE SOD 40 MG TABEC PO SCH (09:00)
[2023-04-07] MEDS ORDERED: SPIRONOLACTONE 25 MG TAB PO SCH (09:00)
[2023-04-07] MEDS: IRON SUCROSE 100 MG in SODIUM CHLORIDE 0.9% 100 ML IV SCH (10:39)
[2023-04-07] MEDS ORDERED: CALCIUM GLUC 1 G/50 ML NACL 50 ML IV ONE (11:45)
[2023-04-07 12:31] LABS: HEMOGLOBIN 6.3 g/dL (14.0-18.0)
[2023-04-07 12:32] LABS: HEMATOCRIT 20.3 % (38.2-49.6)
[2023-04-08] VITALS (9 sets, daily range): BP systolic 108–125; BP diastolic 54–65; PULSE 60–78; RESP 16–20; TEMP 97.8–98.5; O2SAT 96–100
[2023-04-08] MEDS ORDERED: FUROSEMIDE INJ 10 MG/ML 4 ML VIAL IV STA (00:44)
[2023-04-08] MEDS: FUROSEMIDE INJ 10 MG/ML 4 ML VIAL IV SCH ×3 (04:35→21:15)
[2023-04-08] MEDS: SODIUM BICARBONATE 650 MG TAB PO SCH ×3 (04:35→21:15)
[2023-04-08 05:13] LABS: HEMOGLOBIN 6.3 g/dL (14.0-18.0)
[2023-04-08 05:19] LABS: HEMATOCRIT 20.5 % (38.2-49.6)
[2023-04-08 05:30] LABS: INR 1.68; PROTHROMBIN TIME 20.2 seconds (11.9-14.5)
[2023-04-08 05:38] LABS: ANION GAP 10.3 mmol/L (8-16); CREATININE, SERUM 0.99 mg/dL (0.72-1.25)
[2023-04-08 05:40] LABS: POTASSIUM 3.3 mmol/L (3.5-5.1)
[2023-04-08 05:41] LABS: CALCIUM 6.6 mg/dL (8.4-10.2)
[2023-04-08] MEDS: SPIRONOLACTONE 25 MG TAB PO SCH (08:40)
[2023-04-08] MEDS: IRON SUCROSE 100 MG in SODIUM CHLORIDE 0.9% 100 ML IV SCH (08:40)
[2023-04-08] MEDS: PROPRANOLOL HCL 10 MG TAB PO SCH ×2 (08:40→16:03)
[2023-04-08] MEDS ORDERED: SODIUM CHLORIDE 0.9% 250ML 250 ML IV ONE (10:30)
[2023-04-08] MEDS ORDERED: CALCIUM GLUC 1 G/50 ML NACL 100 ML IV ONE (10:45)
[2023-04-08] MEDS ORDERED: SODIUM CHLORIDE 0.9% 100 ML ONE (14:48)
[2023-04-08] MEDS ORDERED: SODIUM CHLORIDE 0.9% 250ML 500 ML ONE (15:11)
[2023-04-08] MEDS ORDERED: PHYTONADIONE 10 MG/ML AMP IV ONE (23:00)
[2023-04-08] MEDS ORDERED: FUROSEMIDE INJ 10 MG/ML 4 ML VIAL IV ONE (23:00)
[2023-04-09] VITALS (9 sets, daily range): BP systolic 111–123; BP diastolic 52–61; PULSE 60–92; RESP 16–18; TEMP 97.6–98.4; O2SAT 95–100
[2023-04-09 05:28] LABS: BASOPHILS % 0.2 % (0.0-1.0); EOSINOPHILS # (AUTO) 0.3 (0.0-0.4); EOSINOPHILS % 5.5 % (0.0-6.0); LYMPHOCYTES # (AUTO) 0.4 (1.0-3.2); LYMPHOCYTES % 7.9 % (18.0-39.1); MEAN CORPUSCULAR HEMOGLOBIN 29.3 pg (28-32); MEAN CORPUSCULAR HGB CONC 32.5 g/dL (31-35); MEAN CORPUSCULAR VOLUME 90.1 fL (81-99); MONOCYTES # (AUTO) 0.5 (0.2-0.8); MONOCYTES % 10.9 % (4.4-11.3); NEUTROPHILS # (AUTO) 3.7 (2.1-6.9); NEUTROPHILS % 74.9 % (38.7-80.0); PLATELET COUNT 104 x10e3/uL (140-360); RED BLOOD COUNT 2.32 x10e6/uL (4.3-5.7); RED CELL DISTRIBUTION WIDTH 16.6 % (11.7-14.4); RETICULOCYTE % 3.2 % (0.8-2.2); WHITE BLOOD COUNT 4.95 x10e3/uL (4.8-10.8)
[2023-04-09 05:48] LABS: ALBUMIN 1.4 g/dL (3.5-5.0); ALBUMIN/GLOBULIN RATIO 0.3 (0.8-2.0); ANION GAP 9.2 mmol/L (8-16); BILIRUBIN,TOTAL 2.1 mg/dL (0.2-1.2); CREATININE, SERUM 1.1 mg/dL (0.72-1.25); TOTAL PROTEIN 5.8 g/dL (6.5-8.1)
[2023-04-09 05:49] LABS: HEMATOCRIT 20.9 % (38.2-49.6); HEMOGLOBIN 6.8 g/dL (14.0-18.0)
[2023-04-09 06:04] LABS: POTASSIUM 3.2 mmol/L (3.5-5.1)
[2023-04-09] MEDS: FUROSEMIDE INJ 10 MG/ML 4 ML VIAL IV SCH ×3 (06:04→21:09)
[2023-04-09] MEDS: SODIUM BICARBONATE 650 MG TAB PO SCH ×3 (06:04→21:09)
[2023-04-09 06:05] LABS: CALCIUM 6.8 mg/dL (8.4-10.2)
[2023-04-09] MEDS ORDERED: CALCIUM GLUC 1 G/50 ML NACL 100 ML IV ONE (07:15)
[2023-04-09] MEDS: IRON SUCROSE 100 MG in SODIUM CHLORIDE 0.9% 100 ML IV SCH (08:46)
[2023-04-09] MEDS: FOLIC ACID 1 MG TAB PO SCH (08:46)
[2023-04-09] MEDS: PROPRANOLOL HCL 10 MG TAB PO SCH ×2 (08:47→16:18)
[2023-04-09] MEDS: SPIRONOLACTONE 25 MG TAB PO SCH (08:47)
[2023-04-09] MEDS ORDERED: SODIUM CHLORIDE 0.9% 250ML 250 ML IV ONE (09:45)
[2023-04-09] MEDS ORDERED: POTASSIUM CHLORIDE 20 MEQ TAB CR PO ONE (10:30)
[2023-04-09] MEDS ORDERED: FUROSEMIDE INJ 10 MG/ML 4 ML VIAL IV STA (22:21)
[2023-04-10] VITALS (12 sets, daily range): BP systolic 98–131; BP diastolic 45–58; PULSE 68–108; RESP 16–22; TEMP 97.8–100.6; O2SAT 94–100
[2023-04-10 01:12] LABS: INR 1.53; PROTHROMBIN TIME 18.7 seconds (11.9-14.5)
[2023-04-10] MEDS: FUROSEMIDE INJ 10 MG/ML 4 ML VIAL IV SCH ×3 (05:29→21:07)
[2023-04-10] MEDS: SODIUM BICARBONATE 650 MG TAB PO SCH ×3 (05:30→20:17)
[2023-04-10 07:16] LABS: HEMATOCRIT 29.4 % (38.2-49.6); HEMOGLOBIN 9.5 g/dL (14.0-18.0)
[2023-04-10] MEDS ORDERED: PROPOFOL IV EMULSION 50 ML IV ONE (08:29)
[2023-04-10] MEDS: PROPRANOLOL HCL 10 MG TAB PO SCH ×2 (09:00→16:20)
[2023-04-10] MEDS ORDERED: DEXMEDETOMIDINE HCL 2 ML ONE (09:00)
[2023-04-10] MEDS ORDERED: KETAMINE 50MG/5ML SYR ONE (09:00)
[2023-04-10] MEDS ORDERED: PHYTONADIONE 10 MG/ML AMP IV ONE (10:00)
[2023-04-10] MEDS ORDERED: METOCLOPRAMIDE HCL 10 MG/2ML VIAL ONE (10:32)
[2023-04-10] MEDS: FOLIC ACID 1 MG TAB PO SCH (13:19)
[2023-04-10] MEDS: SPIRONOLACTONE 25 MG TAB PO SCH (13:19)
[2023-04-10] MEDS: SUCRALFATE 1 GM/10 ML SUSP PO SCH ×3 (13:20→20:16)
[2023-04-10] MEDS: ALBUTEROL/IPRATROPIUM 3 ML NEB NEB PRN ×2 (16:33→21:09)
[2023-04-10] MEDS: IRON SUCROSE 100 MG in SODIUM CHLORIDE 0.9% 100 ML IV SCH (16:34)
[2023-04-10] MEDS ORDERED: Vancomycin IV 1 GM in SODIUM CHLORIDE 0.9% 250ML 250 ML IV ONE (23:45)
[2023-04-10] MEDS ORDERED: ACETAMINOPHEN 325 MG TAB PO PRN (23:45)
[2023-04-11] VITALS (9 sets, daily range): BP systolic 95–123; BP diastolic 51–72; PULSE 61–98; RESP 17–22; TEMP 97.4–98.3; O2SAT 96–100
[2023-04-11] MEDS ORDERED: HYDRALAZINE HCL 20 MG/ML VIAL IV PRN (04:15)
[2023-04-11] MEDS ORDERED: GUAIFENESIN/DEXTROMETHORPHAN LIQD 5 ML UDC PO PRN (04:15)
[2023-04-11 06:09] LABS: BASOPHILS % 0.2 % (0.0-1.0); EOSINOPHILS % 0.2 % (0.0-6.0); HEMATOCRIT 23.6 % (38.2-49.6); HEMOGLOBIN 7.7 g/dL (14.0-18.0); LYMPHOCYTES # (AUTO) 0.2 (1.0-3.2); LYMPHOCYTES % 4.1 % (18.0-39.1); MEAN CORPUSCULAR HEMOGLOBIN 29.3 pg (28-32); MEAN CORPUSCULAR HGB CONC 32.6 g/dL (31-35); MEAN CORPUSCULAR VOLUME 89.7 fL (81-99); MONOCYTES # (AUTO) 0.6 (0.2-0.8); MONOCYTES % 10.1 % (4.4-11.3); NEUTROPHILS % 84.7 % (38.7-80.0); RED BLOOD COUNT 2.63 x10e6/uL (4.3-5.7); RED CELL DISTRIBUTION WIDTH 17.1 % (11.7-14.4); WHITE BLOOD COUNT 5.92 x10e3/uL (4.8-10.8)
[2023-04-11 06:11] LABS: PLATELET COUNT 87 x10e3/uL (140-360)
[2023-04-11] MEDS: FUROSEMIDE INJ 10 MG/ML 4 ML VIAL IV SCH ×3 (06:23→21:04)
[2023-04-11] MEDS: SODIUM BICARBONATE 650 MG TAB PO SCH ×3 (06:23→21:05)
[2023-04-11] MEDS: ALBUTEROL/IPRATROPIUM 3 ML NEB NEB PRN (07:36)
[2023-04-11] MEDS: PROPRANOLOL HCL 10 MG TAB PO SCH ×2 (09:00→17:00)
[2023-04-11] MEDS: SUCRALFATE 1 GM/10 ML SUSP PO SCH ×4 (10:10→21:05)
[2023-04-11] MEDS: SPIRONOLACTONE 25 MG TAB PO SCH (10:11)
[2023-04-11] MEDS: IRON SUCROSE 100 MG in SODIUM CHLORIDE 0.9% 100 ML IV SCH (10:11)
[2023-04-11] MEDS: FOLIC ACID 1 MG TAB PO SCH (10:11)
[2023-04-11] MEDS: MULTIVITAMINS/MINERALS TAB PO SCH (10:12)
[2023-04-11] MEDS ORDERED: ONDANSETRON HCL 4 MG ORAL DISINTEGRATING TAB PO PRN (13:00)
[2023-04-11] MEDS ORDERED: PANTOPRAZOLE SOD 40 MG TABEC PO SCH (16:30)
[2023-04-11] MEDS ORDERED: SODIUM CHLORIDE 0.9% 250ML 250 ML ONE (20:28)
[2023-04-12] VITALS (8 sets, daily range): BP systolic 103–128; BP diastolic 50–91; PULSE 66–72; RESP 16–20; TEMP 97.6–98.4; O2SAT 97–100
[2023-04-12] MEDS ORDERED: FUROSEMIDE INJ 100 MG in SODIUM CHLORIDE 0.9% 90 ML IV SCH (00:15)
[2023-04-12] MEDS ORDERED: POTASSIUM CHLORIDE 10MEQ EA PO STA (01:00)
[2023-04-12 06:01] LABS: BASOPHILS % 0.5 % (0.0-1.0); EOSINOPHILS # (AUTO) 0.4 (0.0-0.4); EOSINOPHILS % 9.7 % (0.0-6.0); HEMATOCRIT 24.8 % (38.2-49.6); HEMOGLOBIN 8.2 g/dL (14.0-18.0); LYMPHOCYTES # (AUTO) 0.4 (1.0-3.2); LYMPHOCYTES % 9.9 % (18.0-39.1); MEAN CORPUSCULAR HEMOGLOBIN 29.4 pg (28-32); MEAN CORPUSCULAR HGB CONC 33.1 g/dL (31-35); MEAN CORPUSCULAR VOLUME 88.9 fL (81-99); MONOCYTES # (AUTO) 0.9 (0.2-0.8); MONOCYTES % 19.6 % (4.4-11.3); NEUTROPHILS # (AUTO) 2.6 (2.1-6.9); NEUTROPHILS % 59.4 % (38.7-80.0); PLATELET COUNT 81 x10e3/uL (140-360); RED BLOOD COUNT 2.79 x10e6/uL (4.3-5.7); RED CELL DISTRIBUTION WIDTH 16.6 % (11.7-14.4); WHITE BLOOD COUNT 4.44 x10e3/uL (4.8-10.8)
[2023-04-12] MEDS: SODIUM BICARBONATE 650 MG TAB PO SCH ×3 (06:16→20:39)
[2023-04-12 07:02] LABS: ANION GAP 10.4 mmol/L (8-16); CREATININE, SERUM 1.31 mg/dL (0.72-1.25); MAGNESIUM 1.3 MG/DL (1.3-2.1); POTASSIUM 3.4 mmol/L (3.5-5.1)
[2023-04-12 07:03] LABS: CALCIUM 6.3 mg/dL (8.4-10.2)
[2023-04-12] MEDS: PROPRANOLOL HCL 10 MG TAB PO SCH ×2 (09:00→17:11)
[2023-04-12] MEDS: SUCRALFATE 1 GM/10 ML SUSP PO SCH ×4 (09:01→20:40)
[2023-04-12] MEDS: MULTIVITAMINS/MINERALS TAB PO SCH (09:02)
[2023-04-12] MEDS: FOLIC ACID 1 MG TAB PO SCH (09:02)
[2023-04-12] MEDS: SPIRONOLACTONE 25 MG TAB PO SCH (09:02)
[2023-04-12] MEDS: FERROUS SULFATE 325 MG TAB PO SCH ×2 (14:39→20:39)
[2023-04-12] MEDS: FUROSEMIDE INJ 100 MG in SODIUM CHLORIDE 0.9% 90 ML IV SCH (15:03)
[2023-04-12 16:29] LABS: CLARITY,URINE CLEAR (CLEAR); COLOR,URINE YELLOW (YELLOW); PH,URINE 5.5 (5 - 7)
[2023-04-12 16:30] LABS: BILIRUBIN,URINE NEGATIVE (NEGATIVE); GLUCOSE, URINE NEGATIVE (NEGATIVE); KETONES,URINE NEGATIVE (NEGATIVE); LEUKOCYTE ESTERASE ,URINE SMALL (NEGATIVE); NITRITE,URINE NEGATIVE (NEGATIVE); PROTEIN,URINE DIPSTICK NEGATIVE (NEGATIVE); URINE UROBILINOGEN 0.2 mg/dL (0.2 - 1)
[2023-04-12 16:31] LABS: BACTERIA,URINE MANY /HPF; EPITHELIAL CELLS,URINE FEW /LPF; RBC,URINE 0-5 /HPF (0-5); WBC,URINE (MAN) >50 /HPF (0-5)
[2023-04-13] VITALS (10 sets, daily range): BP systolic 105–130; BP diastolic 51–62; PULSE 60–81; RESP 17–20; TEMP 98.1–98.6; O2SAT 96–100
[2023-04-13] MEDS ORDERED: FUROSEMIDE INJ 100 MG in SODIUM CHLORIDE 0.9% 90 ML IV SCH (00:15)
[2023-04-13] MEDS: FUROSEMIDE INJ 100 MG in SODIUM CHLORIDE 0.9% 90 ML IV SCH (02:30)
[2023-04-13] MEDS: SODIUM BICARBONATE 650 MG TAB PO SCH ×3 (05:23→20:21)
[2023-04-13 06:15] LABS: BASOPHILS # (AUTO) 0.1 (0.0-0.1); EOSINOPHILS # (AUTO) 0.4 (0.0-0.4); EOSINOPHILS % 7.4 % (0.0-6.0); HEMATOCRIT 26.6 % (38.2-49.6); HEMOGLOBIN 8.6 g/dL (14.0-18.0); LYMPHOCYTES # (AUTO) 0.5 (1.0-3.2); LYMPHOCYTES % 10.6 % (18.0-39.1); MEAN CORPUSCULAR HEMOGLOBIN 29.4 pg (28-32); MEAN CORPUSCULAR HGB CONC 32.3 g/dL (31-35); MEAN CORPUSCULAR VOLUME 90.8 fL (81-99); MONOCYTES # (AUTO) 0.8 (0.2-0.8); NEUTROPHILS # (AUTO) 3.2 (2.1-6.9); NEUTROPHILS % 64.8 % (38.7-80.0); PLATELET COUNT 88 x10e3/uL (140-360); RED BLOOD COUNT 2.93 x10e6/uL (4.3-5.7); RED CELL DISTRIBUTION WIDTH 16.6 % (11.7-14.4); WHITE BLOOD COUNT 4.99 x10e3/uL (4.8-10.8)
[2023-04-13 07:32] LABS: ANION GAP 9.5 mmol/L (8-16); CREATININE, SERUM 1.14 mg/dL (0.72-1.25); MAGNESIUM 1.3 MG/DL (1.3-2.1); PHOSPHORUS 2.4 MG/DL (2.3-4.7); POTASSIUM 3.5 mmol/L (3.5-5.1)
[2023-04-13 07:46] LABS: CALCIUM 6.6 mg/dL (8.4-10.2)
[2023-04-13] MEDS: PROPRANOLOL HCL 10 MG TAB PO SCH ×2 (09:00→17:06)
[2023-04-13] MEDS: FOLIC ACID 1 MG TAB PO SCH (09:02)
[2023-04-13] MEDS: FERROUS SULFATE 325 MG TAB PO SCH ×3 (09:02→20:03)
[2023-04-13] MEDS: MULTIVITAMINS/MINERALS TAB PO SCH (09:02)
[2023-04-13] MEDS: SUCRALFATE 1 GM/10 ML SUSP PO SCH ×4 (09:02→20:03)
[2023-04-13] MEDS: SPIRONOLACTONE 25 MG TAB PO SCH (09:02)
[2023-04-13 09:20] LABS: HEPATITIS B SURFACE AG (P) NEGATIVE
[2023-04-13 09:21] LABS: HEPATITIS C ANTIBODY NEGATIVE
[2023-04-13] MEDS ORDERED: CALCIUM GLUC 1 G/50 ML NACL 100 ML IV ONE (11:15)
[2023-04-13] MEDS ORDERED: DEXTROSE 5% IV ONE (11:15)
[2023-04-13] MEDS ORDERED: CALCIUM GLUCONATE IV ONE (11:15)
[2023-04-13] MEDS: FUROSEMIDE INJ 100 MG in DEXTROSE 5% 100ML 90 ML IV SCH (12:09)
[2023-04-13] MEDS ORDERED: DEXTROSE 5% IV SCH (22:00)
[2023-04-13] MEDS ORDERED: CEFTRIAXONE IV SCH (22:00)
[2023-04-14] VITALS (8 sets, daily range): BP systolic 115–128; BP diastolic 53–64; PULSE 57–74; RESP 14–20; TEMP 97.8–98.7; O2SAT 94–99
[2023-04-14] MEDS: FUROSEMIDE INJ 100 MG in DEXTROSE 5% 100ML 90 ML IV SCH ×3 (04:28→23:48)
[2023-04-14] MEDS: SODIUM BICARBONATE 650 MG TAB PO SCH ×3 (06:37→20:41)
[2023-04-14 07:33] LABS: ANION GAP 11.2 mmol/L (8-16); CREATININE, SERUM 0.97 mg/dL (0.72-1.25); MAGNESIUM 1.2 MG/DL (1.3-2.1); PHOSPHORUS 2.8 MG/DL (2.3-4.7)
[2023-04-14 07:36] LABS: POTASSIUM 3.2 mmol/L (3.5-5.1)
[2023-04-14 07:41] LABS: CALCIUM 6.8 mg/dL (8.4-10.2)
[2023-04-14] MEDS ORDERED: POTASSIUM CHLORIDE 20 MEQ TAB CR PO STA (09:19)
[2023-04-14] MEDS: FERROUS SULFATE 325 MG TAB PO SCH ×3 (09:20→20:22)
[2023-04-14] MEDS: SPIRONOLACTONE 25 MG TAB PO SCH (09:21)
[2023-04-14] MEDS: PROPRANOLOL HCL 10 MG TAB PO SCH ×2 (09:21→17:55)
[2023-04-14] MEDS: SUCRALFATE 1 GM/10 ML SUSP PO SCH ×4 (09:21→20:22)
[2023-04-14] MEDS: FOLIC ACID 1 MG TAB PO SCH (09:21)
[2023-04-14] MEDS: MULTIVITAMINS/MINERALS TAB PO SCH (09:22)
[2023-04-14] MEDS ORDERED: MAGNESIUM SULFATE 2GM/50ML 50 ML IV ONE (09:30)
[2023-04-14] MEDS: CALCIUM GLUC 1 G/50 ML NACL 50 ML IV SCH ×2 (13:48→13:54)
[2023-04-15] VITALS: BP 118/55; PULSE 64; RESP 18; TEMP 98; O2SAT 97
[2023-04-15 03:00] VITALS: BP 118/55; PULSE 64; RESP 18; TEMP 98; O2SAT 97
[2023-04-15 04:00] VITALS: BP 117/56; PULSE 65; RESP 18; TEMP 98; O2SAT 97
[2023-04-15 06:02] LABS: BASOPHILS % 0.4 % (0.0-1.0); EOSINOPHILS # (AUTO) 0.3 (0.0-0.4); EOSINOPHILS % 6.4 % (0.0-6.0); HEMATOCRIT 25.2 % (38.2-49.6); HEMOGLOBIN 8.1 g/dL (14.0-18.0); LYMPHOCYTES # (AUTO) 0.6 (1.0-3.2); MEAN CORPUSCULAR HEMOGLOBIN 28.9 pg (28-32); MEAN CORPUSCULAR HGB CONC 32.1 g/dL (31-35); MONOCYTES # (AUTO) 0.6 (0.2-0.8); MONOCYTES % 13.9 % (4.4-11.3); NEUTROPHILS % 65.2 % (38.7-80.0); RED CELL DISTRIBUTION WIDTH 16.4 % (11.7-14.4); WHITE BLOOD COUNT 4.53 x10e3/uL (4.8-10.8)
[2023-04-15 06:13] LABS: ANION GAP 9.5 mmol/L (8-16); CREATININE, SERUM 1.02 mg/dL (0.72-1.25); MAGNESIUM 1.5 MG/DL (1.3-2.1); PHOSPHORUS 2.8 MG/DL (2.3-4.7); POTASSIUM 3.5 mmol/L (3.5-5.1)
[2023-04-15 06:20] LABS: PLATELET COUNT 72 x10e3/uL (140-360)
[2023-04-15 06:36] LABS: CALCIUM 6.9 mg/dL (8.4-10.2)
[2023-04-15] MEDS: SODIUM BICARBONATE 650 MG TAB PO SCH (06:42)
[2023-04-15] MEDS ORDERED: Folic Acid PO (06:56)
[2023-04-15] MEDS ORDERED: FUROSEMIDE40 MG PO (06:56)
[2023-04-15] MEDS ORDERED: ALDACTONE25 MG PO (06:56)
[2023-04-15] MEDS ORDERED: Ferrous Sulfate PO (06:56)
[2023-04-15] MEDS ORDERED: Sucralfate Susp 1GM/10ML PO (06:56)
[2023-04-15] MEDS ORDERED: SODIUM BICARBO650 MG PO (06:56)
[2023-04-15] MEDS ORDERED: POTASSIUM CHLO20 ME1 PO (06:56)
[2023-04-15] MEDS ORDERED: Multivitamins/Minerals PO (06:56)
[2023-04-15] MEDS ORDERED: TUMS ULTRA400 MG PO (06:56)
[2023-04-15] MEDS ORDERED: CIPRO500 MG PO (06:57)
[2023-04-15] MEDS ORDERED: ZITHROMAX500 MG PO (07:00)
[2023-04-15 07:38] VITALS: BP 114/56; PULSE 68; RESP 17; TEMP 98.5; O2SAT 96
[2023-04-15] MEDS: SPIRONOLACTONE 25 MG TAB PO SCH (09:35)
[2023-04-15] MEDS: SUCRALFATE 1 GM/10 ML SUSP PO SCH (09:35)
[2023-04-15] MEDS: CALCIUM CARBONATE 500 MG CHEWABLE TABS PO SCH ×2 (09:36→09:37)
[2023-04-15] MEDS: FERROUS SULFATE 325 MG TAB PO SCH (09:36)
[2023-04-15] MEDS: FOLIC ACID 1 MG TAB PO SCH (09:36)
[2023-04-15] MEDS: PROPRANOLOL HCL 10 MG TAB PO SCH (09:36)
[2023-04-15] MEDS: MULTIVITAMINS/MINERALS TAB PO SCH (09:36)
[2023-04-15 11:28] VITALS: BP 113/58; PULSE 66; RESP 21; TEMP 98.3; O2SAT 96
== END 2023-04-15 11:41 | disposition home or self-care (01) | DRG 432 ==
LOC: ER 14:46 → ERHOLD 18:08 → MED/SURG3 20:35 → OBSVTOIN 04-07 11:13
PROVIDERS: ADMIT Internal Medicine; ATTEND Internal Medicine
PROC: 30233N1 Transfusion of Nonautologous Red Blood Cells into Peripheral Vein, Percutaneous Approach (ICD-10-PCS; 2023-04-07)
PROC: 0DB78ZX Excision of Stomach, Pylorus, Via Natural or Artificial Opening Endoscopic, Diagnostic (ICD-10-PCS; 2023-04-10)
PROC: 0W9G3ZZ Drainage of Peritoneal Cavity, Percutaneous Approach (ICD-10-PCS; principal; 2023-04-10 09:10)
DX: K70.31 Alcoholic cirrhosis of liver with ascites (principal); J96.01 Acute respiratory failure with hypoxia; N39.0 Urinary tract infection, site not specified; I85.00 Esophageal varices without bleeding; Z16.12 Extended spectrum beta lactamase (ESBL) resistance; E87.20 Acidosis, unspecified; K76.6 Portal hypertension; D84.89 Other immunodeficiencies; D84.81 Immunodeficiency due to conditions classified elsewhere; D62 Acute posthemorrhagic anemia; J81.1 Chronic pulmonary edema; D50.9 Iron deficiency anemia, unspecified; E83.51 Hypocalcemia; B96.1 Klebsiella pneumoniae [K. pneumoniae] as the cause of diseases classified elsewhere; Z68.38 Body mass index [BMI] 38.0-38.9, adult; D69.59 Other secondary thrombocytopenia; K31.89 Other diseases of stomach and duodenum; K25.9 Gastric ulcer, unspecified as acute or chronic, without hemorrhage or perforation; E87.70 Fluid overload, unspecified; E88.09 Other disorders of plasma-protein metabolism, not elsewhere classified; F10.21 Alcohol dependence, in remission; D69.6 Thrombocytopenia, unspecified; E66.01 Morbid (severe) obesity due to excess calories; D36.7 Benign neoplasm of other specified sites; Z20.822 Contact with and (suspected) exposure to COVID-19
CPT/HCPCS: 36415; 43239; 49083; 71045; 74470; 76604; 76700; 80048; 80053; 81001; 82105; 82607; 82728; 82746; 83010; 83540; 83605; 83615; 83735; 84100; 84466; 85014; 85018; 85025; 85045; 85610; 86850; 86870; 86880; 86900; 86905; 86920; 86922; 87040; 87071; 87086; 87186; 87205; 87400; 88305; 88342; 94640; 94799; 96361; 99001; 99284; G0378; J0612; J0696; J1756; J1940; J2185; J2765; J3430; J3475; J7040; J7050; P9016; U0002